=== PATIENT | female | born 1950 | race Caucasian/White ===

== ENCOUNTER → 2020-06-19 | Outpatient (CLI) | payer MEDICARE, BC ==
--- NOTE | 2020-06-19 09:32 | Diagnostic Imaging Report ---
PROCEDURE: US Gallbladder. TECHNIQUE: Multiple real-time grayscale images were obtained over the right upper quadrant in various projections. INDICATION: Right upper quadrant pain. FINDINGS: Liver is normal in size at 15.2 cm. No discrete liver mass is identified. Portal vein is patent and shows normal direction of flow. The gallbladder is without stones or sludge. No wall thickening or biliary duct dilatation is seen. Pancreas unremarkable. Aorta is nonaneurysmal. IVC is patent. Right kidney is without calculi or hydronephrosis. There is no ascites. IMPRESSION: Unremarkable gallbladder ultrasound. Dictated by: Dictated on workstation # [id number]
== END ==
LOC: RAD 08:00
PROVIDERS: ATTEND Surgery
DX: R10.11 Right upper quadrant pain (principal)
CPT/HCPCS: 76705

== ENCOUNTER → 2020-07-07 | Outpatient (CLI) | payer MEDICARE, BC ==
[~2020-07-07] MED LIST: CATHETER FLUSH 10 ML SYR IV PRN
--- NOTE | 2020-07-07 12:11 | Diagnostic Imaging Report ---
INDICATION: Right upper quadrant abdominal pain.. FINDINGS: The patient was administered 5.35 mCi of Tc 99m Choletec and sequential imaging was performed over the right upper abdomen. There is progressive, homogeneous accumulation of radiotracer within the liver parenchyma. There is filling of the bile ducts and subsequent filling of the gallbladder. There is progressive clearance of activity from the liver parenchyma and accumulation of radiotracer within loops of small bowel. The patient was then administered a fatty meal, utilizing 8 ounces of Ensure. The gallbladder ejection fraction was calculated to be approximately 64.6%. (Normal values post fatty meal stimulation are 33% or greater.) IMPRESSION: 1. Hepatobiliary scan demonstrates a patent biliary tree. 2. Normal gallbladder ejection fraction of approximately 64.6%. Dictated by: Dictated on workstation # [id number]
== END ==
LOC: CARD 10:00
PROVIDERS: ATTEND Surgery
DX: R10.11 Right upper quadrant pain (principal)
CPT/HCPCS: 78227; A9537

== ENCOUNTER 2020-07-24 05:43 | Outpatient (CLI) | payer MEDICARE, BC ==
[~2020-07-24] VITALS: Ht 157.5 cm; Wt 60.3 kg
[2020-07-24] MEDS ORDERED: MULT-1136 PO (13:18)
[2020-07-24] MEDS ORDERED: L.AC1CAP6 PO (13:18)
[2020-07-24] MEDS ORDERED: VITAMIN D PO (13:18)
[2020-07-24] MEDS ORDERED: SIMV40TA25 PO (13:18)
[2020-07-24] MEDS ORDERED: CHOL4PAC2 PO (13:18)
== END 2020-07-24 13:28 | disposition home or self-care (01) ==
LOC: PREOP 05:43
PROVIDERS: ATTEND Surgery
DX: Z01.818 Encounter for other preprocedural examination (principal)

== ENCOUNTER 2020-07-31 10:45 | Day surgery (SDC) | payer MEDICARE, BC ==
--- NOTE | 2020-07-28 11:26 | HISTORY AND PHYSICAL ---
DATE OF SERVICE: PROCEDURE DATE: 07/31/2020 ATTENDING PRIMARY CARE PHYSICIAN: Dr. Inocente Pardo HISTORY OF PRESENT ILLNESS: The patient is a 69-year-old female, who was referred over to us for crampy abdominal pain, bloating as well as diarrhea for the past 3 months. She states that there is no inciting event or food type and has not changed anything with her diet or water source. She did undergo stool cultures as well as Clostridium difficile, which was negative. She did have a colonoscopy in 2013, which was normal. She underwent a gallbladder ultrasound, which did not show any gallstones. She then underwent a HIDA scan, which showed a normal ejection fraction of 64%. However, after the test, she states that she did have bloating sensation as well as diarrhea and was most considered a positive test for biliary dyskinesia. I have explained to the patient about these results. PAST MEDICAL HISTORY: Hypercholesterolemia. PAST SURGICAL HISTORY: Appendectomy in 1969, left breast biopsy, which was benign in 1982, partial hysterectomy in 1987. ALLERGIES: FLAGYL, DOXYCYCLINE. MEDICATIONS: Simvastatin 40 mg daily, vitamin D 50,000 units weekly, tizanidine 4 mg one to two tablets q.8 hours p.r.n. SOCIAL HISTORY: Previous for tobacco smoke, quit in 1981. Rare for alcohol. FAMILY HISTORY: Mother, diabetes, lymphoma, stroke, myocardial infarction. Brother and sister, diabetes. VITAL SIGNS: Blood pressure 140/73. Current weight is 131.1 pounds at 6 feet 2 inches. REVIEW OF SYSTEMS: This is a well-nourished female in no acute distress. She is not experiencing any shortness of breath or difficulty breathing. No chest pain, palpitations or diaphoresis. No nausea or vomiting, but does report intermittent episodes of epigastric as well as lower abdominal pain. She does report frequent diarrhea. No constipation. No red blood per rectum. No dark tarry stools. No fever or chills. No recent inadvertent weight loss. All other review of systems negative. PHYSICAL EXAMINATION: CHEST: Clear. Good breath sounds bilaterally. HEART: Regular, no murmurs. EXTREMITIES: No lower extremity edema. Negative Homans sign. HEENT: No scleral icterus. NECK: No cervical lymphadenopathy. ABDOMEN: Soft, nondistended. There is some tenderness in the epigastric as well as right upper quadrant abdominal region. No palpable masses. No organomegaly. SKIN: Warm, dry and pink. NEUROLOGIC: Awake, alert and oriented x3. ASSESSMENT AND PLAN: A 69-year-old female with symptomatic biliary dyskinesia. It was discussed with her about the results of her test and she would like to proceed with a surgical intervention with a laparoscopic cholecystectomy. The risks and benefits of the procedure as well as the procedure and home care instructions were explained to the patient. The patient verbalized understanding of instructions and agrees to proceed as planned. At this time, we will proceed with scheduling her for a laparoscopic cholecystectomy. Job ID: [id number] DocumentID: [id number] Dictated Date: 07/28/2020 09:27:41 Paper Tube Grader Date: 07/28/2020 11:26:14 Dictated By: J CARLOS DURON
[2020-07-31] VITALS (11 sets, daily range): BP systolic 131–147; BP diastolic 60–72
[~2020-07-31] VITALS: Ht 157.5 cm; Wt 60.3 kg
[~2020-07-31 10:45] MED LIST changes: -CATHETER FLUSH 10 ML SYR IV PRN; +CHOL4PAC2 PO; +L.AC1CAP6 PO; +MULT-1136 PO; +SIMV40TA25 PO; +VITAMIN D PO
[2020-07-31] MEDS ORDERED: ceFAZolin 2 GM IV Premixed 50 ML IV ONE (11:00)
[2020-07-31] MEDS: LACTATED RINGERS 1,000 ML IV PRN ×2 (11:14→14:10)
--- NOTE | 2020-07-31 11:59 | Progress Note-Pre Operative ---
Pre-Operative Progress Note H&P Reviewed The H&P was reviewed, patient examined and no changes noted. Date Seen by Provider: Jul 31, 2020 Time Seen by Provider: 11:30 Date H&P Reviewed: Jul 31, 2020 Time H&P Reviewed: 11:30 Pre-Operative Diagnosis: sx biliary dyskinesia MIYA LIMA MD Jul 31, 2020 11:59
[2020-07-31] MEDS ORDERED: oxyCODONE/APAP 5/325MG (PERCOCET 5) TABLET PO PRN (12:00)
[2020-07-31] MEDS ORDERED: ONDANSETRON 4 MG/2 ML (SDV) Z0FRAN IVP PRN (12:00)
[2020-07-31] MEDS ORDERED: ACETAMINOPHEN 325 MG TABLET PO PRN (12:00)
[2020-07-31] MEDS ORDERED: morphine INJ 10 MG/ML 1ML (SYR OR VIAL) IVP PRN ×2 (12:00)
[2020-07-31] MEDS ORDERED: HYDR-3817 PO (12:13)
--- NOTE | 2020-07-31 12:13 | Discharge Inst-Surgical ---
D/C Lap Instructions-KIDO Reconcile Patient Problems Problems Reviewed?: Yes New, Converted, or Re-Newed RX: RX on Chart Follow Up Appt in 2 weeks Activity as tolerated No driving for 24 hours No driving while on pain medications Incentive Spirometry use every 2 hours while awake Regular Diet Symptoms to Report: Fever over 101 degree F, Nausea/Vomiting Infection Signs and Symptoms to report: Increased redness, Foul odor of wound, Increased drainage Bathing instructions: May shower Operative Area Clean/Dry; Keep incision clean/dry If any problems/questions: Contact your physician or go to Emergency Room TRACE NGO APRN Jul 31, 2020 12:13
[2020-07-31] MEDS ORDERED: LIDOCAINE/EPI 1%-1:100,000 (XYLOCAINE) 20ML ONE (12:20)
[2020-07-31] MEDS ORDERED: ROCURONIUM 10 MG/ML 5 ML SYRINGE IV ONE (12:44)
[2020-07-31] MEDS ORDERED: NEOSTIGMINE 3 MG/3 ML VIAL ONE (12:44)
[2020-07-31] MEDS ORDERED: LIDOCAINE PF 2% 5 ML (XYLOCAINE) VIAL ONE (12:44)
[2020-07-31] MEDS ORDERED: GLYCOPYRROLATE 0.2 MG/ML (ROBINUL) 2 ML VIAL ONE (12:44)
[2020-07-31] MEDS ORDERED: fentaNYL INJ 100 MCG/2 ML AMP ONE (12:44)
[2020-07-31] MEDS ORDERED: MIDAZOLAM 2 MG/2 ML (VERSED) VIAL ONE (12:44)
[2020-07-31] MEDS ORDERED: proPOfol 200 MG/20 ML (DIPRIVAN) VIAL IV ONE (12:44)
[2020-07-31] MEDS ORDERED: ONDANSETRON 4 MG/2 ML (SDV) Z0FRAN ONE ×3 (12:44→14:51)
--- NOTE | 2020-07-31 14:02 | Progress Note-Post Operative ---
Post-Operative Progess Note Surgeon (s)/Line Helper (s) Surgeon MIYA LIMA MD Line Helper: estephanie esteves AVIATION TECHNICIAN Pre-Operative Diagnosis sx biliary dyskinesia Post-Operative Diagnosis chronic calculous cholecystitis. Procedure & Operative Findings Date of Procedure 07/31/20 Procedure Performed/Findings laparoscopic cholecystectomy Anesthesia Type get Estimated Blood Loss Estimated blood loss (mL): minimal Specimens/Packing Specimens Removed gallbladder MIYA LIMA MD Jul 31, 2020 14:02
[2020-07-31] MEDS ORDERED: morphine INJ 10 MG/ML 1ML (SYR OR VIAL) ONE (14:19)
[2020-07-31] MEDS ORDERED: morphine INJ 10 MG/ML 1ML (SYR OR VIAL) IVP ONE (14:30)
[2020-07-31] MEDS ORDERED: HYDROmorphone 2 MG/ML VIAL (DILAUDID) IV ONE (14:30)
[2020-07-31] MEDS: ONDANSETRON 4 MG/2 ML (SDV) Z0FRAN IVP PRN ×2 (14:32→14:50)
--- NOTE | 2020-07-31 14:39 | Anesthesia-General Post-Op ---
General Patient Condition Mental Status/LOC: Same as Preop Cardiovascular: Satisfactory Nausea/Vomiting: Absent Respiratory: Satisfactory Pain: Controlled Complications: Absent Post Op Complications Complications None Follow Up Care/Instructions Patient Instructions None needed. Anesthesia/Patient Condition Patient Condition Patient is doing well, C/O pain but mostly back pain, stable vital signs, no apparent adverse anesthesia problems. FAISAL WALKER DO Jul 31, 2020 14:39
[2020-07-31] MEDS ORDERED: oxyCODONE/APAP 5/325MG (PERCOCET 5) TABLET ONE (15:30)
--- NOTE | 2020-07-31 18:51 | OPERATIVE REPORT ---
DATE OF SERVICE: 07/31/2020 ATTENDING PRIMARY CARE PHYSICIAN: Inocente Pardo DO PREOPERATIVE DIAGNOSIS: Symptomatic biliary dyskinesia. POSTOPERATIVE DIAGNOSIS: Symptomatic biliary dyskinesia with gallbladder cholesterolosis. PROCEDURE: Laparoscopic cholecystectomy. SURGEON: Miya Lima MD. FINANCIAL INVESTIGATOR: Feliberto York APRN. ANESTHESIA: General endotracheal. ESTIMATED BLOOD LOSS: Minimal. FINDINGS: Distended gallbladder, no gallbladder wall thickening, cholesterolosis of the gallbladder. DISPOSITION: The patient tolerated the procedure well. INDICATIONS: The patient is a 69-year-old female who has had a six-month history of pain in the right upper abdominal quadrant as well as nausea and vomiting usually following meals. She states that this was initially mild; however, has become more frequent as well as more severe over time. She had an ultrasound performed, which did not show any gallstones and then this was followed by an ultrasound, which showed a normal ejection fraction; however, she did have reproduction of symptoms with abdominal bloating and nausea and vomiting after the administration of a Kinevac analogue. This was consistent with symptomatic biliary dyskinesia. DESCRIPTION OF PROCEDURE: The patient was brought to the operating room, laid supine on the table. After adequate IV pain and sedative medications and general endotracheal intubation, the abdomen was prepped and draped in standard surgical fashion. A 0.5% Marcaine with epinephrine was used to anesthetize overlying skin in the left upper abdominal quadrant and a transverse skin incision made using a 15 blade. An 0 silk suture was applied to the medial aspect of the incision for retraction and a Veress needle inserted with a low opening pressure of 0 mmHg. The abdomen was then insufflated to 15 mmHg pressure. The Veress needle removed and a 5 mm XL trocar placed followed by a 5 mm 45-degree angle laparoscope visualizing the peritoneal cavity. A 4-quadrant abdominal exploration was performed. There was a distended gallbladder, no gallbladder wall thickening. Under direct visualization, we then proceeded to place a supraumbilical 10 mm port after the skin and peritoneal lining were anesthetized using 0.5% Marcaine with epinephrine and a transverse skin incision made using 15 blade. In a similar manner, a 5 mm right upper abdominal quadrant port was placed. The patient was then placed in reverse Trendelenburg position as well as plane right side up, left side down. The fundus of the gallbladder was then retracted anteriorly and superiorly. The hepatoduodenal ligament was then opened using blunt dissection as well as electrocautery on the hook instrument. The entire critical view of safety was identified including the triangle of Calot as well as the cystic duct and artery as the only two structures going into the gallbladder as well as the cystic plate behind the proximal gallbladder. A timeout was then taken, and the cystic duct and artery were then clipped proximally, distally and cut with EndoShears. Gallbladder was then dissected off of the liver bed using cautery with visualization of good hemostasis as well as no leaking ducts of Luschka. The gallbladder was removed through the 10 mm port site using an EndoCatch bag. The 10 mm port site fascia and peritoneum were then closed under direct visualization using a Morales-Wendy device and 0 Vicryl suture. The abdomen was then desufflated and the remaining ports removed. All skin incisions were closed using 4-0 Monocryl running subcuticular sutures. Wounds were then cleaned and covered with Dermabond. The patient tolerated the procedure well. We will start IV normal pain medication as well as a clear liquid diet. Once she is tolerating clears, has good pain control with oral pain medications, ambulating well, we will discharge him home. She will be instructed to do no heavy lifting or exertion for the next two weeks as well as to follow a phase 1 clear liquid diet for the next two weeks as well. Job ID: [id number] DocumentID: [id number] Dictated Date: 07/31/2020 14:12:45 Electrical Hardware Engineer Date: 07/31/2020 18:51:00 Dictated By: MIYA LIMA MD
== END 2020-07-31 16:40 | disposition home or self-care (01) ==
LOC: SDC 10:45
PROVIDERS: ATTEND Surgery
DX: K81.1 Chronic cholecystitis (principal); K82.8 Other specified diseases of gallbladder; E78.00 Pure hypercholesterolemia, unspecified; Z90.89 Acquired absence of other organs; Z79.899 Other long term (current) drug therapy; Z87.891 Personal history of nicotine dependence; Z83.3 Family history of diabetes mellitus; Z82.3 Family history of stroke; Z80.7 Family history of other malignant neoplasms of lymphoid, hematopoietic and related tissues
CPT/HCPCS: 87081; 88304

== ENCOUNTER → 2021-01-21 | Outpatient (CLI) | payer MEDICARE, BC ==
[~2021-01-21] MED LIST changes: +HYDR-3817 PO
--- NOTE | 2021-01-21 16:31 | Diagnostic Imaging Report ---
INDICATION: Mid back pain. COMPARISON: None. FINDINGS: Frontal and lateral views of the thoracic spine were obtained. Visualization of the upper thoracic spine is limited on the lateral projection. Alignment and vertebral heights are maintained. There is no fracture or destructive process. There are no large paraspinal masses. Mild degenerative disease is noted in the thoracic spine. Limited views of the lungs are clear. IMPRESSION: 1. No acute fracture or dislocation of the thoracic spine. 2. Mild multilevel degenerative changes. Dictated by: Dictated on workstation # [id number]
== END ==
LOC: RAD 15:32
PROVIDERS: ATTEND Family Medicine
DX: M47.814 Spondylosis without myelopathy or radiculopathy, thoracic region (principal)
CPT/HCPCS: 72072

== ENCOUNTER 2021-02-12 13:59 | Outpatient (RCR) | payer MEDICARE, BC, MEDICAID | END 2021-02-13 | disposition home or self-care (01) | PROVIDERS: ATTEND Family Medicine | DX: M54.6 Pain in thoracic spine (principal) | CPT/HCPCS: 97161; G0283 ==

== ENCOUNTER 2021-02-20 12:49 | Outpatient (RCR) | payer MEDICARE, MEDICAID | END 2021-03-16 | disposition home or self-care (01) | PROVIDERS: ATTEND Family Medicine | DX: M54.6 Pain in thoracic spine (principal) | CPT/HCPCS: 97140; G0283 ==

== ENCOUNTER 2021-09-27 12:40 | Emergency (ER) | payer MEDICARE, MEDICAID ==
[~2021-09-27] VITALS: Ht 157 cm; Wt 66.0 kg
[~2021-09-27 12:40] MED LIST changes: -CHOL4PAC2 PO; +CHOL4POW4 PO
[2021-09-27] MEDS ORDERED: KETOROLAC 30 MG/ML VIAL IVP ONE (13:15)
[2021-09-27] MEDS ORDERED: NS IV 1000 ML 1,000 ML IV SCH (13:15)
--- NOTE | 2021-09-27 13:16 | ED Abdominal Pain ---
General Chief Complaint: Abdominal/GI Problems Stated Complaint: LLQ PAIN Source of Information: Patient, Family (daughter) Exam Limitations: No Limitations History of Present Illness Date Seen by Provider: Sep 27, 2021 Time Seen by Provider: 13:00 Initial Comments Patient is a 70-year-old female who presents to the emergency department today with a chief complaint of left flank pain/left back pain and left lower quadrant abdominal pain. Onset this morning when she woke up. She has never had a pain quite like this before. At its worst she rated it at a "10". Currently it is a "8". She has not taken anything for the pain. She is not nauseated. She has had prior appendectomy, cholecystectomy. She has had colonoscopies in the past that were unremarkable. She had a ham sandwich for dinner last night. No sick contacts. No upper respiratory complaints. No fevers no chills. No burning with urination. No bloody stools. Last bowel movement was yesterday and it was normal. Walking and movement make her pain worse. Laying still seems to make it a little bit better. All other review of systems reviewed and negative except as stated Timing/Duration: 4-6 Hours Severity/Quality: Severe, Aching, Cramping Location: LUQ, LLQ, Flank (left) Activities at Onset: None Modifying Factors: Worsens With Movement Associated Symptoms: Heartburn, Nausea/Vomiting, Weakness Allergies and Home Medications Allergies Coded Allergies: doxycycline (Unverified Allergy, Unknown, 07/07/20) metronidazole (Unverified Allergy, Unknown, 07/07/20) Patient Home Medication List Home Medication List Reviewed: Yes Cholestyramine (with Sugar) (Cholestyramine Packet) 4 Gm Powd.pack, 4 GM PO DAILY, (Reported) Entered as Reported by: SELAM MERAZ on 07/24/20 1318 Hydrocodone/Acetaminophen (Hydrocodone-Acetamin 7.5-325) 1 Each Tablet, 1 EACH PO Q4H PRN for PAIN-BREAKTHROUGH Prescribed by: TRACE NGO on 07/31/20 1213 L.acidoph & Paracasei,B.lactis (Probiotic) 1 Each Capsule, 1 EACH PO DAILY, (Reported) Entered as Reported by: SELAM MERAZ on 07/24/20 1318 Multivitamin (Multivitamin) 1 Each Tablet, 1 EACH PO DAILY, (Reported) Entered as Reported by: SELAM MERAZ on 07/24/201317 Simvastatin (Simvastatin) 40 Mg Tablet, 40 MG PO DAILY, (Reported) Entered as Reported by: SELAM MERAZ on 07/24/201317 [Vitamin D] , 100,000 UNITS PO WEEK, (Reported) Entered as Reported by: SELAM MERAZ on 07/24/201317 Review of Systems Review of Systems Constitutional: see HPI EENTM: No Symptoms Reported Respiratory: No Symptoms Reported Cardiovascular: No Symptoms Reported Gastrointestinal: Abdominal Pain Genitourinary: No Symptoms Reported Musculoskeletal: no symptoms reported Skin: no symptoms reported Psychiatric/Neurological: No Symptoms Reported All Other Systems Reviewed Negative Unless Noted: Yes Past Qfwojfc-Nsiirv-Zpqnbm Hx Seasonal Allergies Seasonal Allergies: No Past Medical History Surgeries: Yes (COLONOSCOPY, LAPAROSCOPY (OVARIAN CYSTS REMOVED)) Abdominal, Appendectomy, Breast, Hysterectomy Respiratory: No Cardiac: Yes High Cholesterol Neurological: No BIOCHEMICAL ENGINEER History: Hysterectomy Genitourinary: No Gastrointestinal: Yes Chronic Diarrhea Musculoskeletal: Yes Arthritis Endocrine: No (HYPOGLYCEMIC) HEENT: Yes (WEARS GLASSES) Hearing Impairment: Denies Cancer: No Psychosocial: No Integumentary: No Blood Disorders: No Physical Exam Vital Signs Vital Signs - First Documented 09/27/21 13:02 Temp 37.0 Pulse 68 Resp 16 B/P (MAP) 142/74 (96) O2 Delivery Room Air Capillary Refill : Height/Weight/BMI Height: '" Weight: lbs. oz. kg; 24.30 BMI Method: General Appearance: WD/WN, no apparent distress HEENT: PERRL/EOMI Respiratory: lungs clear, normal breath sounds, no respiratory distress, no accessory muscle use Cardiovascular: regular rate, rhythm Gastrointestinal: soft, tenderness (very minimal tenderness elicited with deep palpation of the left LQ. No distension; no rebound or involuntary guarding. Mild Lt CVA tenderness) Extremities: normal range of motion, normal inspection Back: normal inspection, CVA tenderness (L) Neurologic/Psychiatric: boarding mother II-XII nml as tested, no motor/sensory deficits, alert, normal mood/affect, oriented x 3 Skin: normal color, warm/dry Progress/Results/Core Measures Results/Orders Lab Results Laboratory Tests Test 09/27/21 13:09 09/27/21 13:17 Range/Units White Blood Count 4.1 L 4.3-11.0 10^3/uL Red Blood Count 4.93 3.80-5.11 10^6/uL Hemoglobin 14.7 11.5-16.0 g/dL Hematocrit 43 35-52 % Mean Corpuscular Volume 88 80-99 fL Mean Corpuscular Hemoglobin 30 25-34 pg Mean Corpuscular Hemoglobin Concent 34 32-36 g/dL Red Cell Distribution Width 12.7 10.0-14.5 % Platelet Count 163 130-400 10^3/uL Mean Platelet Volume 9.2 9.0-12.2 fL Immature Granulocyte % (Auto) 0 % Neutrophils (%) (Auto) 58 42-75 % Lymphocytes (%) (Auto) 32 12-44 % Monocytes (%) (Auto) 10 0-12 % Eosinophils (%) (Auto) 0 0-10 % Basophils (%) (Auto) 1 0-10 % Neutrophils # (Auto) 2.4 1.8-7.8 10^3/uL Lymphocytes # (Auto) 1.3 1.0-4.0 10^3/uL Monocytes # (Auto) 0.4 0.0-1.0 10^3/uL Eosinophils # (Auto) 0.0 0.0-0.3 10^3/uL Basophils # (Auto) 0.0 0.0-0.1 10^3/uL Immature Granulocyte # (Auto) 0.0 0.0-0.1 10^3/uL Sodium Level 137 135-145 MMOL/L Potassium Level 3.7 3.6-5.0 MMOL/L Chloride Level 102 98-107 MMOL/L Carbon Dioxide Level 22 21-32 MMOL/L Anion Gap 13 5-14 MMOL/L Blood Urea Nitrogen 12 7-18 MG/DL Creatinine 0.90 0.60-1.30 MG/DL Estimat Glomerular Filtration Rate 70 BUN/Creatinine Ratio 13 Glucose Level 105 70-105 MG/DL Calcium Level 9.4 8.5-10.1 MG/DL Urine Color YELLOW Urine Clarity CLEAR Urine pH 5.5 5-9 Urine Specific [place] >=1.030 1.016-1.022 Urine Protein NEGATIVE NEGATIVE Urine Glucose (UA) NEGATIVE NEGATIVE Urine Ketones NEGATIVE NEGATIVE Urine Nitrite NEGATIVE NEGATIVE Urine Bilirubin NEGATIVE NEGATIVE Urine Urobilinogen 0.2 < = 1.0 MG/DL Urine Leukocyte Esterase NEGATIVE NEGATIVE Urine RBC (Auto) NEGATIVE NEGATIVE Urine RBC NONE /HPF Urine WBC NONE /HPF Urine Squamous Epithelial Cells 2-5 /HPF Urine Crystals NONE /LPF Urine Bacteria NEGATIVE /HPF Urine Casts NONE /LPF Urine Mucus NEGATIVE /LPF Urine Culture Indicated NO My Orders Orders - WALT LAMBERT MD Ed Iv/Invasive Line Start (09/27/21 13:11) Cbc With Automated Diff (09/27/21 13:11) Basic Metabolic Panel (09/27/21 13:11) Chest 1 View, Ap/Pa Only (09/27/21 13:11) Ua Culture If Indicated (09/27/21 13:11) Ns Iv 1000 Ml (Sodium Chloride 0.9%) (09/27/21 13:15) Ketorolac Injection (Toradol Injection) (09/27/21 13:15) Ekg Tracing (09/27/21 15:00) Medications Given in ED Current Medications Medications Dose Ordered Sig/Anay Route Start Time Stop Time Status Last Admin Dose Admin Ketorolac Tromethamine 15 mg ONCE ONCE IVP 09/27/21 13:15 09/27/21 13:16 DC 09/27/21 13:18 15 MG Vital Signs/I&O 09/27/21 13:02 Temp 37.0 Pulse 68 Resp 16 B/P (MAP) 142/74 (96) O2 Delivery Room Air Progress Progress Note : Time: 15:37 Progress Note Patient seen and examined by me, 70-year-old with a chief complaint of epigastric left upper quadrant left flank tenderness onset this morning. Exam is benign at the time of my evaluation when she was having pain at a "8". I could not reproduce any of her pain and she seemed comfortable with the exam. She had no fever or vomiting hematemesis or bloody stools today. She has normal labs. She was treated with Toradol IV here in the department and fluids. She feels much better. I have reviewed all of these findings with her and her daughter. Daughter was concerned about some possible anginal equivalent. An EKG was obtained which showed normal sinus rhythm without ectopy or ST segment change. The patient has a follow-up appointment with her primary care physician in 1 week. I have discussed return precautions with her I recommended she keep that appointment with her primary. She seems comfortable with the plan of care. All questions are sought and answered. No clinical or objective findings to warrant further studies from the emergency department, no indications for an emergent CT Initial ECG Impression Date: Sep 27, 2021 Initial ECG Impression Time: 15:10 Initial ECG Rate: 65 Initial ECG Rhythm: Normal Sinus Initial ECG Intervals: Normal Initial ECG Impression: Normal Departure Impression Primary Impression: Abdominal pain Qualified Codes: R10.13 - Epigastric pain Disposition: 01 HOME, SELF-CARE Condition: Improved Departure-Patient Inst. Decision time for Depature: 15:36 Referrals: MAGGY SIBLEY DO (PCP/Family) Primary Care Physician Patient Instructions: Severe Abdominal Pain, Adult (DC) Add. Discharge Instructions: Follow a clear liquid diet throughout the rest of the day today. Take byke-vmx-[id number] extra strength Tylenol, 2 tablets every 6 hours as needed for mild abdominal cramping. You might also obtain some "Gas-X" and take that twice a day for the next couple of days. If you develop a fever, vomiting, worsening abdominal pain, bloody stools or any other emergent, concerning symptoms please come back to the emergency department for reevaluation. Keep your follow-up appointment with your primary care doctor in 1 week. Copy Copies To 1: MAGGY SIBLEY KATHRYN M MD Sep 27, 2021 13:16
[2021-09-27 13:20] LABS: BASOPHILS % (AUTO) 1 % (0-10); EOSINOPHILS % (AUTO) 0 % (0-10); HEMATOCRIT 43 % (35-52); HEMOGLOBIN 14.7 g/dL (11.5-16.0); LYMPHOCYTES # (AUTO) 1.3 10^3/uL (1.0-4.0); LYMPHOCYTES % (AUTO) 32 % (12-44); MEAN CORPUSCULAR HEMOGLOBIN 30 pg (25-34); MEAN CORPUSCULAR HGB CONC 34 g/dL (32-36); MEAN CORPUSCULAR VOLUME 88 fL (80-99); MEAN PLATELET VOLUME 9.2 fL (9.0-12.2); MONOCYTES # (AUTO) 0.4 10^3/uL (0.0-1.0); MONOCYTES % (AUTO) 10 % (0-12); NEUTROPHILS # (AUTO) 2.4 10^3/uL (1.8-7.8); NEUTROPHILS % (AUTO) 58 % (42-75); PLATELET COUNT 163 10^3/uL (130-400); WHITE BLOOD COUNT 4.1 10^3/uL (4.3-11.0)
[2021-09-27 13:30] LABS: BILIRUBIN,URINE NEGATIVE (NEGATIVE); CLARITY,URINE CLEAR; COLOR,URINE YELLOW; GLUCOSE, URINE (UA) NEGATIVE (NEGATIVE); KETONES,URINE NEGATIVE (NEGATIVE); LEUKOCYTE ESTERASE ,URINE NEGATIVE (NEGATIVE); NITRITE,URINE NEGATIVE (NEGATIVE); PH,URINE 5.5 (5-9); PROTEIN,URINE NEGATIVE (NEGATIVE)
[2021-09-27 13:32] LABS: POTASSIUM 3.7 MMOL/L (3.6-5.0)
[2021-09-27 13:34] LABS: CALCIUM 9.4 MG/DL (8.5-10.1)
[2021-09-27 13:38] LABS: CREATININE SERUM 0.9 MG/DL (0.60-1.30)
[2021-09-27 13:39] LABS: BACTERIA,URINE NEGATIVE /HPF
--- NOTE | 2021-09-27 14:05 | Diagnostic Imaging Report ---
EXAMINATION: Chest 1 view HISTORY: Chest pain COMPARISON: None available. FINDINGS: The lungs are clear without edema or pneumonia. No pleural effusion or pneumothorax. Heart size is normal. IMPRESSION: 1. Clear lungs. Dictated by: Dictated on workstation # [id number]
[2021-09-27 15:49] VITALS: BP 130/70
== END 2021-09-27 15:49 | disposition home or self-care (01) ==
LOC: EDUNIT# 12:40 → ER 12:42
DX: R10.13 Epigastric pain (principal); Z90.49 Acquired absence of other specified parts of digestive tract; Z28.310 Unvaccinated for COVID-19
CPT/HCPCS: 36415; 71045; 80048; 81000; 85025; 93005